=== PATIENT | female | born 1980 | race Caucasian/White ===

== ENCOUNTER 2022-08-07 18:08 | Emergency (ER) | payer OTHER ==
[2022-08-07 18:29] VITALS: TEMP 98.5; BMI 24.0
[2022-08-07] MEDS ORDERED: SODIUM CHLORIDE 1,000 ML IV STA (19:39)
[2022-08-07] MEDS ORDERED: LORazepam 2 MG/ML SDV VIAL IVPUSH ONE (19:39)
[2022-08-07] MEDS ORDERED: METOCLOPRAMIDE HCL INJECTION 10 MG/2 ML VIAL IVPUSH ONE (19:40)
[2022-08-07] MEDS ORDERED: METOCLOPRAMIDE HCL INJECTION 10 MG/2 ML VIAL ONE (19:50)
[2022-08-07 20:34] LABS: BASO % 0.4 % (0-2.0); HEMATOCRIT 41.2 % (32.4-45.2); HEMOGLOBIN 13.4 GM/dL (10.7-15.3); LYMPH % 53.4 % (8-40); MCH 28.2 pg (25.7-33.7); MCHC 32.5 g/dl (32.0-36.0); MEAN CELL VOLUME 86.8 fl (80-96); MEAN PLT VOLUME 8.4 fl (7.5-11.1); MONO % 5.5 % (3.8-10.2); NEUT % 35.7 % (42.8-82.8); PLATELET COUNT 259 10^3/uL (134-434); RBC 4.75 M/mm3 (3.60-5.2); RDW 13.8 % (11.6-15.6)
[2022-08-07 20:38] LABS: URINE APPEARANCE CLEAR; URINE BILIRUBIN NEGATIVE (NEGATIVE); URINE COLOR YELLOW; URINE GLUCOSE (UA) NEGATIVE (NEGATIVE); URINE KETONE NEGATIVE (NEGATIVE); URINE LEUK ESTERASE NEGATIVE (NEGATIVE); URINE NITRITE NEGATIVE (NEGATIVE); URINE PROTEIN NEGATIVE (NEGATIVE); URINE UROBILINOGEN 0.2 mg/dL (0.2-1.0)
[2022-08-07 20:40] LABS: HCG,QUALITATIVE URINE Negative
[2022-08-07 20:55] LABS: CALCIUM 8.8 mg/dL (8.5-10.1)
[2022-08-07 20:56] LABS: ALBUMIN 4.1 g/dl (3.4-5.0); BLOOD UREA NITROGEN 7.1 mg/dL (7-18)
[2022-08-07 20:59] LABS: CREATININE 0.6 mg/dL (0.55-1.3)
[2022-08-07 21:00] LABS: TOT PROT 7.9 g/dl (6.4-8.2)
[2022-08-07 21:01] LABS: BILIRUBIN,TOTAL 0.2 mg/dL (0.2-1)
[2022-08-07 23:10] VITALS: BP 124/68; PULSE 75; RESP 20
== END 2022-08-07 23:11 | disposition home or self-care (01) ==
LOC: JER 18:08
PROC: 3E033GC Introduction of Other Therapeutic Substance into Peripheral Vein, Percutaneous Approach (ICD-10-PCS; principal; 2022-08-07)
DX: H81.11 Benign paroxysmal vertigo, right ear (principal)
CPT/HCPCS: 36415; 70450-TC; 71046-TC-FY; 80053; 81003; 84484; 84703; 85025; 85379; 87077; 87086; 93005; 93010; 99285-25